=== PATIENT | female | born 1965 ===

== ENCOUNTER 2018-03-10 15:49 | Outpatient (CLI) | payer OTHER ==
--- NOTE | 2018-03-11 09:54 | Ultrasound Report ---
Reason: ABDOMINAL PAIN, RIGHT LOWER QUADRANT, PELVIC PAIN Procedure Date: 03/10/2018 Accession Number: [id number] / [id number] Procedure: US - Abdomen Limited CPT Code: FULL RESULT: EXAM: ABDOMEN ULTRASOUND LIMITED EXAM DATE: 03/10/2018 05:21 PM. CLINICAL HISTORY: Abdominal pain, right lower quadrant, pelvic pain. COMPARISON: None. TECHNIQUE: Real-time scanning was performed with static images obtained. FINDINGS: Focused soft-tissue images of the painful region near the right inguinal canal and right lower quadrant were obtained. Only normal soft tissues of an intact abdominal wall are identified. No collection or hernia is seen. IMPRESSION: No collection or hernia. RADIA
--- NOTE | 2018-03-11 11:32 | Ultrasound Report ---
Reason: ABDOMINAL PAIN,RIGHT LOWER QUADRANT,PELVIC PAIN Procedure Date: 03/10/2018 Accession Number: [id number] / [id number] Procedure: US - Pelvic w/Transvaginal CPT Code: FULL RESULT: EXAM: PELVIC ULTRASOUND EXAM DATE: 03/10/2018 04:45 PM. CLINICAL HISTORY: Abdominal pain, right lower quadrant, pelvic pain. COMPARISON: None. TECHNIQUE: Realtime transabdominal pelvic scan performed to identify the uterus and adnexa and as an overview of other pelvic structures, followed by transvaginal scan to provide greater detail of the uterus and adnexa, with static image documentation. FINDINGS: Additional images are needed for complete evaluation. IMPRESSION: Incomplete evaluation. The patient should return to the Radiology Department for further imaging including ultrasound examination by the radiologist at no additional charge. A complete report will be issued at that time. [facility] ADDENDUM: 03/14/2018 15:36 EXAM: PELVIC ULTRASOUND EXAM DATE: 03/10/2018 and 03/14/2018. TECHNIQUE: Realtime transabdominal pelvic scan performed to identify the uterus and adnexa and as an overview of other pelvic structures, followed by transvaginal scan to provide greater detail of the uterus and adnexa, with static image documentation. FINDINGS: Uterus: 7.5 x 2.9 x 3.9 cm, volume 44 cc. Anteverted position. Normal overall size and echotexture. Masses: 0.7 x 0.6 x 0.6 cm fundal fibroid as well as a 1.5 x 1.5 cm fundal fibroid with apparent submucosal component which does not demonstrate abnormal vascularity by color Doppler. Endometrium: 4 mm. Distortion of the endometrial contour by the above fibroid. Cervix: Unremarkable. Right Ovary: Not seen, reportedly surgically absent. Left Ovary: Not seen, reportedly surgically absent. Free Fluid: A small amount of free fluid is noted. Other: None. IMPRESSION: Fibroid uterus. Small amount of free pelvic fluid. RADIA
== END 2018-03-10 15:50 | disposition home or self-care (01) ==
LOC: DI 15:49
PROVIDERS: ATTEND Nurse Practitioner Obstetrics & Gynecology
DX: R10.31 Right lower quadrant pain (principal); R10.2 Pelvic and perineal pain
CPT/HCPCS: 76705; 76830; 76856

== ENCOUNTER 2018-03-14 13:27 | Outpatient (CLI) | payer OTHER ==
--- NOTE | 2018-03-22 12:30 | Ultrasound Report ---
Reason: PELVIC PAIN Procedure Date: 03/14/2018 Accession Number: [id number] / [id number] Procedure: US - Pelvic w/Transvaginal CPT Code: FULL RESULT: FINDINGS: IMPRESSION: For results, please see the addended US Pelvic w/Transvaginal report dated 03/10/2018.
--- NOTE | 2018-03-22 12:30 | Ultrasound Report ---
Reason: TECH REPEAT - NO CHARGE - PELVIC PAIN Procedure Date: 03/14/2018 Accession Number: [id number] / [id number] Procedure: US - No Charge Procedure CPT Code: FULL RESULT: FINDINGS: IMPRESSION: For results, please see the addended US Pelvic w/Transvaginal report dated 03/10/2018.
== END 2018-03-14 13:28 | disposition home or self-care (01) ==
LOC: DI 13:27
PROVIDERS: ATTEND Nurse Practitioner Obstetrics & Gynecology
DX: D25.9 Leiomyoma of uterus, unspecified (principal)
CPT/HCPCS: 76830; 76856

== ENCOUNTER 2018-08-22 13:10 | Outpatient (CLI) | payer OTHER ==
--- NOTE | 2018-09-02 10:12 | Mammography Report ---
Reason: SCREENING MAMMO Procedure Date: 08/22/2018 Accession Number: [id number] / [id number] Procedure: KRISSY - Screening Mammo w/Emiliano CPT Code: FULL RESULT: EXAM: Screening Mammo w/Emiliano DATE: 08/22/2018 1:37 PM CLINICAL HISTORY: Routine screening nulliparous patient TECHNIQUE: (B) - Bilateral CC and MLO projections COMPARISON: 08/21/2016 PARENCHYMAL PATTERN: (A) - The breasts demonstrate scattered fibroglandular densities bilaterally. FINDINGS: Negative left breast. There are no suspicious masses, calcifications, or areas of distortion. On the right there is a 1 cm nodule 11:30 position 4 to 5 cm posterior to the nipple for which ultrasound is suggested. Otherwise no dominant right breast mass, suspicious calcifications or architectural distortion. IMPRESSION: Incomplete examination. BI-RADS category 0. RECOMMENDATION: (ADDUS) - Targeted ultrasound recommended. Ultrasound right breast 11:30 position 4 to 5 cm posterior to the nipple. Negative left breast. BI-RADS CATEGORY: (0) - Incomplete Examination - need additional evaluation. STANDARD QUALIFYING STATEMENTS: 1. This examination was not reviewed with the aid of Computer-Aided Detection (CAD). 2. A negative or benign imaging report should not preclude biopsy if clinically suspicious findings are present. 3. Dense breasts may obscure an underlying neoplasm. 4. This examination was reviewed with the aid of 3D breast imaging (tomosynthesis).
== END 2018-08-22 13:11 | disposition home or self-care (01) ==
LOC: DI 13:10
DX: Z12.31 Encounter for screening mammogram for malignant neoplasm of breast (principal); R92.8 Other abnormal and inconclusive findings on diagnostic imaging of breast
CPT/HCPCS: 77063; 77067

== ENCOUNTER 2018-09-13 12:12 | Outpatient (CLI) | payer OTHER ==
--- NOTE | 2018-09-13 14:03 | Ultrasound Report ---
Reason: ABNORMAL MAMMOGRAM Procedure Date: 09/13/2018 Accession Number: [id number] / [id number] Procedure: US - Breast Unilateral Limited CPT Code: FULL RESULT: EXAM: Breast Unilateral Limited DATE: 09/13/2018 1:16 PM CLINICAL HISTORY: Small indeterminate focal breast asymmetry upper outer quadrant right breast on recent screening 3-D mammography. TECHNIQUE: Targeted right breast ultrasound performed with special attention given to the upper outer quadrant. COMPARISON: Screening mammography with tomography 08/22/2018 FINDINGS: No abnormalities. There is not confirmation of a small mass in the approximate 11:30 position right breast. IMPRESSION: Negative right breast ultrasound. Follow-up right breast 3-D mammography and right breast ultrasound in 6 months is recommended below. BI-RADS CATEGORY: CATEGORY 3-PROBABLY BENIGN RECOMMENDATIONS: Six-month follow-up right 3-D mammogram and right breast ultrasound.
== END 2018-09-13 12:13 | disposition home or self-care (01) ==
LOC: DI 12:12
PROVIDERS: ATTEND Internal Medicine
DX: R92.8 Other abnormal and inconclusive findings on diagnostic imaging of breast (principal)
CPT/HCPCS: 76642

== ENCOUNTER 2018-09-21 16:07 | Outpatient (CLI) | payer OTHER ==
[2018-09-21] MEDS ORDERED: IOVERSOL 320 50 ML VIAL ONE (16:36)
[2018-09-21] MEDS ORDERED: IOVERSOL 320 100 ML VIAL IVP ONE ×2 (16:36→18:52)
[2018-09-21] MEDS ORDERED: IOVERSOL 320 50 ML VIAL PO ONE (18:52)
--- NOTE | 2018-09-22 10:44 | CT Report ---
Reason: LEFT LOWER QUADRANT PAIN Procedure Date: 09/21/2018 Accession Number: [id number] / [id number] Procedure: CT - Abdomen/Pelvis W CPT Code: FULL RESULT: EXAM: CT ABDOMEN AND PELVIS EXAM DATE: 09/21/2018 05:17 PM. CLINICAL HISTORY: Left lower quadrant pain. COMPARISONS: None. TECHNIQUE: Routine helical CT imaging was performed through the abdomen and pelvis. IV contrast: 100 mL Optiray 320. Enteric contrast: Yes. Reconstructions: Coronal and sagittal. In accordance with CT protocol optimization, one or more of the following dose reduction techniques were utilized for this exam: automated exposure control, adjustment of mA and/or KV based on patient size, or use of iterative reconstructive technique. FINDINGS: Lung Bases: Unremarkable. Liver: Normal. No masses. Gallbladder/Bile Ducts: Cholelithiasis. Spleen: Normal. Pancreas: Normal. Adrenal Glands: Normal. Kidneys: Normal. No masses or hydronephrosis. Peritoneal Cavity/Bowel: No bowel obstruction. No free fluid, free air or adenopathy. No masses or acute inflammatory process. The appendix is well visualized and normal. Pelvic Organs: Normal. The bladder and visualized pelvic organs are within normal limits. Vasculature: No aneurysms or other significant abnormality. Bones: No significant abnormality. Other: None. IMPRESSION: Cholelithiasis without acute abnormality detected. RADIA
== END 2018-09-21 16:08 | disposition home or self-care (01) ==
LOC: DI 16:07
PROVIDERS: ATTEND Internal Medicine
DX: R10.32 Left lower quadrant pain (principal); K80.20 Calculus of gallbladder without cholecystitis without obstruction
CPT/HCPCS: 74177; Q9967

== ENCOUNTER 2019-03-16 14:00 | Outpatient (CLI) | payer OTHER ==
--- NOTE | 2019-03-16 14:56 | Mammography Report ---
Reason: ABNORMAL MAMMOGRAM Procedure Date: 03/16/2019 Accession Number: [id number] / [id number] Procedure: KRISSY - Diagnostic Dig RT CPT Code: Final Report FULL RESULT: EXAM: Diagnostic Dig RT DATE: 03/16/2019 2:47 PM CLINICAL HISTORY: Diagnostic examination. TECHNIQUE: (R) - Right right CC, right MLO, right LM images are obtained. COMPARISON: 08/22/2018 through 08/21/2016. PARENCHYMAL PATTERN: (A) - The breast(s) demonstrate(s) scattered fibroglandular densities. FINDINGS: The previously identified approximately 1 cm nodule at the 11:30 position 4 to 5 cm posterior to the nipple has not changed on 2-D or 3-D mammography, probably benign. There are no suspicious masses, calcifications, or areas of distortion. IMPRESSION: Probably Benign. BI-RADS category 3. RECOMMENDATION: (12MOS) - Recommend 12 month follow-up exam. Diagnostic mammogram and ultrasound right breast. BI-RADS CATEGORY: (3) - Probably Benign. STANDARD QUALIFYING STATEMENTS: 1. This examination was not reviewed with the aid of Computer-Aided Detection (CAD). 2. A negative or benign imaging report should not preclude biopsy if clinically suspicious findings are present. 3. Dense breasts may obscure an underlying neoplasm. 4. This examination was reviewed with the aid of 3D breast imaging (tomosynthesis).
== END 2019-03-16 14:01 | disposition home or self-care (01) ==
LOC: DI 14:00
DX: R92.8 Other abnormal and inconclusive findings on diagnostic imaging of breast (principal)

== ENCOUNTER 2019-04-25 08:00 | Outpatient (CLI) | payer OTHER ==
[2019-04-25 17:27] LABS: ALBUMIN 4.2 g/dL (3.2-5.5); ALBUMIN/GLOBULIN RATIO 1.1 (1.0-2.2); ALKALINE PHOSPHATASE 69 IU/L (42-121); ALT ALANINE AMINOTRANSFERASE 33 IU/L (10-60); AST ASPARTATE AMINOTRANSFERASE 24 IU/L (10-42); BILIRUBIN,TOTAL 0.6 mg/dL (0.2-1.0); BUN - BLOOD UREA NITROGEN 15 mg/dL (6-20); CALCIUM 9.3 mg/dL (8.5-10.3); CARBON DIOXIDE - CO2 27 mmol/L (21-32); CHLORIDE 99 mmol/L (101-111); CHOL/HDL RATIO 4.9 (<4.4); CHOLESTEROL 277 mg/dL; CREATININE 0.7 mg/dL (0.4-1.0); GFR - MDRD 88 (>89); GLUCOSE 96 mg/dL (70-100); HDL CHOLESTEROL 56 mg/dL; LDL CHOLESTEROL,CALCULATED 175 mg/dL; LDL/HDL RATIO 3.1 (<4.4); SODIUM 137 mmol/L (135-145); TOTAL PROTEIN 7.9 g/dL (6.7-8.2); VLDL CHOLESTEROL 46 mg/dL
== END 2019-04-25 23:59 | disposition home or self-care (01) ==
LOC: LAB.S 08:00
PROVIDERS: ATTEND Nurse Practitioner Family
DX: R94.5 Abnormal results of liver function studies (principal); E78.5 Hyperlipidemia, unspecified
CPT/HCPCS: 36415; 80053; 80061; 83721

== ENCOUNTER 2020-03-20 10:28 | Outpatient (CLI) | payer BC | END 2020-03-20 10:29 | disposition home or self-care (01) | LOC: COV 10:28 | PROVIDERS: ATTEND Family Medicine | DX: R09.81 Nasal congestion (principal); J02.9 Acute pharyngitis, unspecified; R19.7 Diarrhea, unspecified; M79.10 Myalgia, unspecified site; R53.83 Other fatigue; Z20.828 Contact with and (suspected) exposure to other viral communicable diseases ==

== ENCOUNTER 2020-04-23 11:22 | Outpatient (CLI) | payer BC, OTHER ==
--- NOTE | 2020-04-24 10:10 | Ultrasound Report ---
LIMITED ULTRASOUND OF RIGHT BREAST: 04/23/2020 CLINICAL: Patient returns for additional imaging over a suspected mass in the right breast. Comparison is made to exams dated: 04/23/2020 mammogram, 03/16/2019 mammogram, 09/13/2018 ultrasound, 08/22/2018 mammogram - [facility], and 08/21/2016 mammogram - [facility]. Ultrasound of the right breast 9-11 o'clock region was performed. There is a dilated duct in the right breast at 11 o'clock anterior depth 4 cm from the nipple. This most likely correlates with mammography findings. IMPRESSION: PROBABLY BENIGN The dilated duct in the right breast is probably benign. A follow-up right mammogram and an ultrasound in 6 months is recommended to demonstrate stability. This exam was interpreted at Station ID: [id number]. Electronically Signed By: Lino Zaldivar M.D. ar/:04/23/2020 13:21:47 Ultrasound BI-RADS: 3 Probably benign BI-RADS CATEGORY: (3) - 3 Mammo and US [id number] 6 month follow-up LATERALITY: (R)
--- NOTE | 2020-04-24 10:10 | Mammography Report ---
BILATERAL DIGITAL DIAGNOSTIC MAMMOGRAM 3D/2D: 04/23/2020 CLINICAL: Diffuse right breast pain. Additional evaluation requested from prior study. Comparison is made to exams dated: 03/16/2019 mammogram, 09/13/2018 ultrasound, 08/22/2018 mammogram - [facility], and 08/21/2016 mammogram - [facility]. There are scattered fibrogl andular elements in both breasts. There is an oval mass with a circumscribed margin in the right breast at 11 o'clock anterior depth. This is not significantly changed. No other significant masses, calcifications, or other findings are seen in either breast. IMPRESSION: INCOMPLETE: NEEDS ADDITIONAL IMAGING EVALUATION The oval mass in the right breast is indeterminate. An ultrasound is recommended. This exam was interpreted at Station ID: [id number]. NOTE: For mammograms, a report in lay terms will be sent to the patient. Approximately 15% of breast malignancies will not be visualized mammographically. In the management of a palpable breast mass, a negative mammogram must not discourage biopsy of a clinically suspicious lesion. SUMMARY: Targeted ultrasound is recommended for further evaluation and will be scheduled immediately following this exam. Electronically Signed By: Lino mendez/huma:04/23/2020 13:15:29 ACR BI-RADS Category 0: Incomplete 3340F PARENCHYMAL PATTERN: (A) - The breast(s) demonstrate(s) scattered fibroglandular densities. BI-RADS CATEGORY: (0) - 0 Ultrasound [id number] Immediate follow-up LATERALITY: (R)
== END 2020-04-23 11:23 | disposition home or self-care (01) ==
LOC: DI 11:22
PROVIDERS: ATTEND Obstetrics & Gynecology
DX: N63.10 Unspecified lump in the right breast, unspecified quadrant (principal); R92.8 Other abnormal and inconclusive findings on diagnostic imaging of breast

== ENCOUNTER 2020-10-03 12:47 | Outpatient (CLI) | payer BC ==
--- NOTE | 2020-10-04 11:23 | Mammography Report ---
UNILATERAL RIGHT DIGITAL DIAGNOSTIC MAMMOGRAM 3D/2D: 10/03/2020 CLINICAL: Patient returns for a 6 month follow up of the right breast. Comparison is made to exams dated: 04/23/2020 ultrasound, 04/23/2020 mammogram, 03/16/2019 mammogram, 09/13/2018 ultrasound, 08/22/2018 mammogram - [facility], and 08/21/2016 mammogram - [facility]. There are scattered fibroglandular elements in right breast. There is a dilated duct in the right breast at 11 o'clock middle depth 4 cm from the nipple. This is not significantly changed. No other significant masses or calcifications are seen in the breast. IMPRESSION: INCOMPLETE: NEEDS ADDITIONAL IMAGING EVALUATION The dilated duct in the right breast is indeterminate. An ultrasound is being performed to document sonographic stability. This exam was interpreted at Station ID: [id number]. NOTE: For mammograms, a report in lay terms will be sent to the patient. Approximately 15% of breast malignancies will not be visualized mammographically. In the management of a palpable breast mass, a negative mammogram must not discourage biopsy of a clinically suspicious lesion. Electronically Signed By: Luis Enrique Tee M.D. jr/:10/03/2020 13:27:45 ACR BI-RADS Category 0: Incomplete 3340F PARENCHYMAL PATTERN: (A) - The breast(s) demonstrate(s) scattered fibroglandular densities. BI-RADS CATEGORY: (0) - 0 Ultrasound [id number] Immediate follow-up LATERALITY: (B)
--- NOTE | 2020-10-04 11:25 | Ultrasound Report ---
LIMITED ULTRASOUND OF RIGHT BREAST: 10/03/2020 CLINICAL: Patient returns today to evaluate a focal asymmetry in the right breast. Comparison is made to exams dated: 10/03/2020 mammogram, 04/23/2020 ultrasound, 04/23/2020 mammogram, mammogram, 09/13/2018 ultrasound, and 08/22/2018 mammogram - [facility]. Color flow and real-time ultrasound of the right breast 9-11 o'clock region were performed. Hernandez sca le images of the real-time examination were reviewed. There is a dilated duct in the right breast at 11 o'clock anterior depth 4 cm from the nipple. This abnormality is not significantly changed and correlates with mammography findings. IMPRESSION: PROBABLY BENIGN The dilated duct in the right breast is unchanged and probably benign. A follow-up ultrasound in [address] [place] [address] is recommended. This exam was interpreted at Station ID: [id number]. Electronically Signed By: Luis Enrique Tee M.D. jr/:10/03/2020 16:44:38 Ultrasound BI-RADS: 3 Probably benign BI-RADS CATEGORY: (3) - 3 Ultrasound [id number] 3 month follow-up LATERALITY: (B)
== END 2020-10-03 12:48 | disposition home or self-care (01) ==
LOC: DI 12:47
PROVIDERS: ATTEND Nurse Practitioner Family
DX: N60.41 Mammary duct ectasia of right breast (principal)

== ENCOUNTER 2023-03-11 09:55 | Outpatient (CLI) | payer MEDICAID ==
[2023-03-11 14:42] LABS: BASOPHILS % (AUTO) 0.5 %; EOSINOPHILS # (AUTO) 0.2 10^3/uL (0.0-0.7); EOSINOPHILS % (AUTO) 2.9 %; HCT - HEMATOCRIT 46.5 % (37.0-47.0); HGB - HEMOGLOBIN 14.9 g/dL (12.0-16.0); LYMPHOCYTES # (AUTO) 2.7 10^3/uL (1.5-3.5); LYMPHOCYTES % (AUTO) 34.3 %; MEAN CORPUSCULAR HEMOGLOBIN 29.9 pg (27.0-31.0); MEAN CORPUSCULAR VOLUME 93.2 fL (81.0-99.0); MONOCYTES # (AUTO) 0.6 10^3/uL (0.0-1.0); MONOCYTES % (AUTO) 7.1 %; NEUTROPHILS # (AUTO) 4.3 10^3/uL (1.5-6.6); NEUTROPHILS % (AUTO) 54.8 %; PLT - PLATELET COUNT 353 10^3/uL (130-450); RED BLOOD COUNT 4.99 10^6/uL (4.20-5.40); RED CELL DISTRIBUTION WIDTH 12.6 % (12.0-15.0); WHITE BLOOD COUNT 7.9 x10^3/uL (4.8-10.8)
[2023-03-11 15:08] LABS: ESTIMATED AVERAGE GLUCOSE 108 mg/dL (70-100); HEMOGLOBIN A1c% 5.4 % (4.27-6.07)
[2023-03-11 15:18] LABS: ALBUMIN 4.2 g/dL (3.2-5.5); ALBUMIN/GLOBULIN RATIO 1.5 (1.0-2.2); ALKALINE PHOSPHATASE 73 IU/L (42-121); ALT ALANINE AMINOTRANSFERASE 24 IU/L (10-60); AST ASPARTATE AMINOTRANSFERASE 21 IU/L (10-42); BILIRUBIN,TOTAL 0.4 mg/dL (0.2-1.0); BUN - BLOOD UREA NITROGEN 18 mg/dL (6-20); CALCIUM 9.2 mg/dL (8.5-10.3); CARBON DIOXIDE - CO2 28 mmol/L (21-32); CHLORIDE 104 mmol/L (101-111); CHOL/HDL RATIO 4.5 (<4.4); CHOLESTEROL 272 mg/dL; CREATININE 0.7 mg/dL (0.6-1.3); GFR - MDRD 86 (>89); GLUCOSE 103 mg/dL (74-104); HDL CHOLESTEROL 61 mg/dL; LDL CHOLESTEROL,CALCULATED 172 mg/dL; LDL/HDL RATIO 2.8 (<4.4); POTASSIUM 4.1 mmol/L (3.5-4.5); SODIUM 139 mmol/L (135-145); TRIGLYCERIDES 197 mg/dL (48-352); VLDL CHOLESTEROL 39 mg/dL
[2023-03-11 15:20] LABS: THYROID STIMULATING HORMONE 1.06 uIU/mL (0.34-5.60)
== END 2023-03-11 09:56 | disposition home or self-care (01) ==
LOC: LAB.S 09:55
PROVIDERS: ATTEND Physician Assistant Medical
DX: Z13.9 Encounter for screening, unspecified (principal)
CPT/HCPCS: 36415; 80053; 80061; 83036; 83721; 84443; 85025

== ENCOUNTER 2023-05-28 10:24 | Outpatient (CLI) | payer MEDICAID ==
[2023-05-28 10:34] LABS: BASOPHILS % (AUTO) 0.5 %; EOSINOPHILS # (AUTO) 0.2 10^3/uL (0.0-0.7); EOSINOPHILS % (AUTO) 2.6 %; HGB - HEMOGLOBIN 13.9 g/dL (12.0-16.0); LYMPHOCYTES # (AUTO) 2.6 10^3/uL (1.5-3.5); LYMPHOCYTES % (AUTO) 35.4 %; MEAN CORPUSCULAR HEMOGLOBIN 29.1 pg (27.0-31.0); MEAN CORPUSCULAR HGB CONC 31.6 g/dL (32.0-36.0); MEAN CORPUSCULAR VOLUME 92.1 fL (81.0-99.0); MEAN PLATELET VOLUME 9.9 fL (7.9-10.8); MONOCYTES # (AUTO) 0.5 10^3/uL (0.0-1.0); MONOCYTES % (AUTO) 6.3 %; NEUTROPHILS # (AUTO) 4.1 10^3/uL (1.5-6.6); NEUTROPHILS % (AUTO) 54.8 %; PLT - PLATELET COUNT 319 10^3/uL (130-450); RED BLOOD COUNT 4.78 10^6/uL (4.20-5.40); WHITE BLOOD COUNT 7.5 x10^3/uL (4.8-10.8)
[2023-05-28 10:47] LABS: ALBUMIN 4.1 g/dL (3.2-5.5); ALBUMIN/GLOBULIN RATIO 1.4 (1.0-2.2); BILIRUBIN,TOTAL 0.4 mg/dL (0.2-1.0); CALCIUM 9.5 mg/dL (8.5-10.3); CREATININE 0.7 mg/dL (0.6-1.3); POTASSIUM 4.3 mmol/L (3.5-4.5)
[2023-05-28 11:04] LABS: THYROID STIMULATING HORMONE 1.18 uIU/mL (0.34-5.60)
[2023-05-28 11:37] LABS: ESTIMATED AVERAGE GLUCOSE 108 mg/dL (70-100); HEMOGLOBIN A1c% 5.4 % (4.27-6.07)
== END 2023-05-28 10:25 | disposition home or self-care (01) ==
LOC: LAB 10:24
PROVIDERS: ATTEND Physician Assistant Medical
DX: R29.90 Unspecified symptoms and signs involving the nervous system (principal); Z78.0 Asymptomatic menopausal state; R73.03 Prediabetes
CPT/HCPCS: 36415; 80053; 83001; 83036; 84443; 85025

== ENCOUNTER 2023-06-02 16:52 | Outpatient (CLI) | payer MEDICAID ==
--- NOTE | 2023-06-03 21:25 | CT Report ---
PROCEDURE: Head WO INDICATIONS: SYMPOTOMS AND SIGNS INVOLVING NERVOUS SYSTEM TECHNIQUE: Noncontrast 4.5 mm thick angled axial sections acquired from the foramen magnum to the vertex. For r adiation dose reduction, the following was used: automated exposure control, adjustment of mA and/or kV according to patient size. COMPARISON: None. FINDINGS: Image quality: Excellent. CSF spaces: Basal cisterns are patent. No extra-axial fluid collections. Ventricles are normal in size and shape. Brain: No midline shift. No intracranial masses or hemorrhage. Hernandez-white matter interface is norm al. The cerebellar tonsils demonstrate normal shape and are not low-lying. Skull and face: Calvarium and visualized facial bones are intact, without suspicious lesions. Sinuses: Visualized sinuses and mastoids are clear. IMPRESSION: Unremarkable head CT for age, without a cause of the patient's presenting symptoms identified. To the limits of this noncontrast head CT, no findings of masses or mass effect can be seen. Negative for hydrocephalus. Reviewed by: Tin Johnson MD on 06/03/2023 8:24 PM [facility] Approved by: Tin Johnson MD on 06/03/2023 8:24 PM [facility] Station ID: [id number]
== END 2023-06-02 16:53 | disposition home or self-care (01) ==
LOC: DI 16:52
PROVIDERS: ATTEND Physician Assistant Medical
DX: R29.90 Unspecified symptoms and signs involving the nervous system (principal)